=== PATIENT | female | born 1965 | race Caucasian/White ===

== ENCOUNTER → 2019-08-20 | Outpatient (CLI) | payer OTHER ==
--- NOTE | 2019-08-20 13:35 | 2DMMODE ---
[place] [address] 2 D/M-MODE ECHOCARDIOGRAM Name: KIERRA LOZANO Room: [facility]#: [id number] Admission: 08/20/19 Attend Phys: Margie Campuzano Discharge: Date of : 67 Date of Service: 08/20/19 1334 Report #: [id number] THIS REPORT FOR: cc: Margie Solorio Stephanie P. DO Liston, Michael J. MD [facility] ~ APPROVED REPORT Study performed: 08/20/2019 11:07:32 EXAM: Comprehensive 2D, Doppler, and color-flow Echocardiogram Patient Location: Out-Patient BSA: 1.91 HR: 50 bpm BP: 138/80 mmHg Other Information Study Quality: Good Indications Murmur 2D Dimensions IVSd: 10.62 (7-11mm) LVOT Diam: 20.31 (18-24mm) LVDd: 44.16 mm PWd: 8.83 (7-11mm) Ascending Ao: 26.95 (22-36mm) LVDs: 22.41 (25-40mm) Aortic Root: 23.49 mm Volumes Left Atrial Volume (Systole) LA ESV Index: 22.30 mL/m2 Aortic Valve AoV Peak Jurgen.: 1.65 m/s AO Peak Gr.: 10.89 mmHg LVOT Max P.79 mmHg AO Mean Gr.: 5.46 mmHg LVOT Mean P.51 mmHg LVOT Max V: 1.20 m/s AO V2 VTI: 38.70 cm LVOT Mean V: 0.71 m/s ANTONIETTA (VTI): 2.55 cm2 LVOT V1 VTI: 30.49 cm Mitral Valve E/A Ratio: 1.16 [place] [address] 2 D/M-MODE ECHOCARDIOGRAM Name: KIERRA LOZANO Room: [facility]#: [id number] Admission: 08/20/19 Attend Phys: Margie Campuzano Discharge: Date of : 67 Date of Service: 08/20/19 1334 Report #: [id number] MV Decel. Time: 223.77 ms MV E Max Jurgen.: 0.81 m/s MV PHT: 64.89 ms MVA (PHT): 3.39 cm2 TDI E/Lateral E': 6.23 E/Medial E': 6.75 Medial E' Jurgen.: 0.12 m/s Lateral E' Jurgen.: 0.13 m/s Pulmonary Valve PV Peak Jurgen.: 0.93 m/s PV Peak Gr.: 3.43 mmHg Tricuspid Valve RAP Estimate: 5.00 mmHg TR Peak Gr.: 25.11 mmHg RVSP: 30.11 mmHg PA Pressure: 30.11 mmHg Left Ventricle The left ventricle is normal size. There is normal LV segmental wall motion. There is normal left ventricular wall thickness. Left ventricular systolic function is normal. LVEF is 55-60%. The left ventricular diastolic function is normal. Right Ventricle The right ventricle is normal size. The right ventricular systolic function is normal. Atria The left atrium size is normal. The right atrium size is normal. Aortic Valve Aortic valve is mildly calcified. No aortic regurgitation is present. There is no aortic valvular stenosis. Mitral Valve The mitral valve is normal in structure. Trace mitral regurgitation. No evidence of mitral valve stenosis. Tricuspid Valve The tricuspid valve is normal in structure. Mild tricuspid regurgitation. No pulmonary hypertension. Pulmonic Valve The pulmonary valve is normal in structure. [place] [address] 2 D/M-MODE ECHOCARDIOGRAM Name: MARTAKIERRA Michael Room: [facility]#: [id number] Admission: 08/20/19 Attend Phys: Margie Campuzano Discharge: Date of : 67 Date of Service: 08/20/19 1334 Report #: [id number] valvular regurgitation. Great Vessels The aortic root is normal in size. IVC is normal in size and collapses >50% with inspiration. Pericardium There is no pericardial effusion. <Conclusion> The left ventricle is normal size. There is normal left ventricular wall thickness. Left ventricular systolic function is normal. LVEF is 55-60%. The left ventricular diastolic function is normal. Aortic valve is mildly calcified. No aortic regurgitation is present. There is no aortic valvular stenosis. Trace mitral regurgitation. Mild tricuspid regurgitation. No pulmonary hypertension. IVC is normal in size and collapses >50% with inspiration. <ELECTRONICALLY SIGNED> By: Joshua Atkins MD, FACC 08/20/19 1334 1334 1334 Joshua Atkins MD, FACC /INF
== END ==
LOC: M.CRD 10:53
DX: I08.2 Rheumatic disorders of both aortic and tricuspid valves (principal)